=== PATIENT | female | born 1955 | race Two or more races ===

== ENCOUNTER 2025-08-22 13:32 | Emergency (ER) | payer OTHER, SELFPAY ==
[2025-08-22] VITALS (16 sets, daily range): BP systolic 118–144; BP diastolic 65–102; PULSE 55–81; TEMP 36.6; O2SAT 91–95; BMI 41.2
--- NOTE | 2025-08-22 13:38 | ECG_ITS ---
[facility] Test Date: 2025-08-22 Pat Name: LESA HERNANDEZ Department: Room: - Gender: Female Clinical Program Consultant: : [id number] Requested By: [id number] Order Number: [id number] Reading MD: STEVE ALVARADO M.D. Measurements Intervals [place] Rate: 63 P: -59105 CA: 187 QRS: 64 QRSD: 134 T: 41 QT: 440 QTc: 448 Interpretive Statements Sinus rhythm with occasional premature ventricular premature complexes 2450 Right bundle branch block 9150 abnormal ECG No previous ECG available for comparison Electronically Signed On 08-22-2025 16:47:07 EST by STEVE ALVARADO M.D.
--- NOTE | 2025-08-22 13:38 | XR_ITS ---
The [address] [address] Patient Name: LESA HERNANDEZ MRN: [id number] date: 1955 Sex: F Assigned Patient Location: ED.MAIN Current Patient Location: ED.MAIN Accession/Order Number: [id number] Exam Date: 08/22/2025 14:10 Report Date: 08/22/2025 14:36 At the request of: MYRNA OLIVARES DO Procedure: XR chest 1V XR chest 1V 08/22/2025 2:17 PM SIGNS AND SYMPTOMS: ^CP PROTOCOL: Frontal radiograph of the chest COMPARISON: None FINDINGS: The trachea is midline. The heart and mediastinal structures are within normal limits. The lung parenchyma is clear. The bony thorax is intact. Remote appearing fractures are noted in the lateral left fourth and fifth ribs. XR/XR chest 1V IMPRESSION: No acute cardiopulmonary pathology. Impression dictated by: Martinez Wise M.D. 08/22/2025 2:36 PM Dictation Location: [place] [address] Electronically authenticated by: [id number] Y Date: 08/22/2025 14:36
--- OUTSIDE RECORDS SUMMARY | 2025-08-22 13:47 | XMS_ITS | Patient Health Record ---
Author Organization [employer] es Address [address] [place] [address] Care Team Providers Care Maintenance Millwright Name Role Phone Marquez Gamez Primary Care Provider Allergies No Known Allergies Reason For Referral No Information Medications Medication SIG (Take, Route, Frequency, Duration) Notes Start Date End Date Status Metoprolol Succinate 50 MG Capsule ER 24 Hour Sprinkle 1 capsule Orally Once a day ActiveOmeprazole 40 MG Capsule Delayed Release1 capsule 30 minutes before morning meal Orally Once a dayActivePravastatin Tsvgpu533bsSjnnjqQXWlhagzba Fumarate 100 MG Tablet1 tablet at bedtime Oral; Duration: 30 daysActive Escitalopram Oxalate 20 MG TabletTAKE 1 TABLET BY MOUTH DAILY Oral; Duration: 90 daysActivehydrOXYzine Pamoate 25 MG Capsule 1 capsule at bedtime as needed Orally twice a day; Duration: 30 days As needed ActivetiZANidine HCl 2 MG TabletTAKE 1 TABLET BY MOUTH TWICE DAILY Oral; Duration: 90 DaysActiveALPRAZolam 0.5 MG Tablet1 tablet Orally three times a day (tid) as needed (prn); Duration: 30 days5ActiverOPINIRole HCl 1 MG Tablet1 tablet 1 to 3 hours before bedtime Orally Once a dayActive Semaglutide(0.25 or 0.5MG/DOS) 2 MG/3ML Solution Pen-injectoras directed SubcutaneousActiveGabapentin 600 MG Tablet1 tablet Orally three times a day; Duration: 30 daysActiveRexulti 3 MG Tablet1 tablet Orally Once a day07/30/2024 Active Social History Tobacco Use: Social History Observation Description Date Details (start date - stop date) Unknown Social History GeneralSocial InfoQuestionAnswerNotesDepression Screening (PHQ-9):Little interest or pleasure in doing thingsNearly every dayFeeling down, depressed, or hopelessNearly every dayTrouble falling or staying asleep, or sleeping too much Nearly every dayFeeling tired or having little energyNearly every dayPoor appetite or overeatingNearly every dayFeeling bad about yourself-or that you are a failure or have let yourself or your family downNearly every dayTrouble concentrating on things, such as reading the newspaper or watching television Nearly every dayMoving or speaking so slowly that other people could have noticed. Or the opposite being so fidgetyor restless that you have been moving around a lot more than usualNearly every dayThoughts that you would be better off , or of hurting yourself in some wayNearly every day(Consider Suicide Assessment Risk)Total Kliea20AysywvrrdnookLwlqpk DepressionSubstance abuse/mental health issues of patient/familyPatient -Illegal Drug UseTHC gummies Drug/Alcohol:Social InfoQuestionAnswerNotesAUDIT-C (Standard)Did you have a drink containing alcohol in the past year?Yes? How often did you have six or more drinks on one occasion in the past year?4 or more times a week (4 points)? How many drinks did you have on a typical day when you were drinking in the past year?5 or 6 drinks (2 points)? How often did you have a drink containing alcohol in the past year?Daily or almost daily (4 points)Onbxtf71RgqftkagclyuheTenhcqjo Tobacco Use:Social InfoQuestionAnswerNotesTobacco Control (Standard)Tobacco use: Uses tobacco in other formsSection Notes: pt vapes pt vapes pt vapes pt vapes pt vapes pt vapes pt vapes Problems Problem Type SNOMED Code ICD Code Onset Dates Problem Status W/U Status Risk Notes Problem Chronic fatigue syndrome (24314489) Chron ic fatigue (R53.82) ActiveconfirmedProblemModerate recurrent major depression (42525571)Moderate episode of recurrent major depressive disorder (F33.1)ActiveconfirmedProblem Panic disorder with agoraphobia (23574576)Panic disorder with agoraphobia (F40.01)ActiveconfirmedProblemGeneralized anxiety disorder (19168732)Generalized anxiety disorder (F41.1)Activeconfirmed Vital Signs Heart Rate 85 /min 02/24/2025 Oywoeehtfwv30.8 degrees Owpszhtuep22/12/9199Tldximyg61 %02/24/2025lood pressure fsrfuacjj13 mm Hg02/24/20256722Qqkeca53 in02/24/2025lood pressure koiaqsyv120 mm Hg 02/24/20259394Bhtmbe452.6 lbs02/24/2025BMI35.96 kg/m202/24/2025 Encounters Encounter Location Date Provider Diagnosis [facility] [address] [place] [address] 09/15/2024 [facility] Generalized anxiety disorder F41.1 [facility] [address] [place] [address] 09/28/2024 [facility] [place] [address]/[facility] [place] [address] 11/03/2024[facility] [place] [address]/[facility] SoviakGeneralized anxiety disorder F41.1[facility] [place] [address]/Ki SoviakModerate episode of recurrent major depressive disorder F33.1FSakakawea Medical CenterEngfnky[address] [place] [address]/Kip SoviakChronic fatigue R53.82[facility] [address] [facility] [place] [address]/Kip SoviakGeneralized anxiety disorder F41.1F [address]xy[address] [facility] [place] [address]/09/2024Kip SoviakGeneralized anxiety disorder F41.1FSakakawea Medical CenterJdqmcnj[address] [place] [address]/Kip SoviakModerate episode of recurrent major depressive disorder F33.1FSakakawea Medical CenterAfwnxbc[address] [place] [address]/09/2025Kip SoviakModerate episode of recurrent major depressive disorder F33.1F [address] [place] [address]/Kip SoviakModerate episode of recurrent major depressive disorder F33.1F [address] [place] [address]/Kip SoviakModerate episode of recurrent major depressive disorder F33.1 Assessments Encounter Date Diagnosis (ICD Code) Assessment Notes Treatment Notes Treatment Clinical Notes Section Notes 11/27/2024 Moderate episode of recurrent major depressive disorder (ICD-10 - F33.1) Recommended treatment is: _ FDA approved medication for this age group include Selective Serotonin Reuptake Inhibitors (SSRI) and Selective Norepinephrine Reuptake Inhibitors (SNRI). . Selective serotonin reuptake inhibitors? can cause nausea, headache, upset stomach, diarrhea, constipation, anxiety, irritability, and sexual dysfunction. . Please monitor for worsening of symptoms, especially suicidal ideations or morbid thoughts, and call office and or go to the emergency department immediately. Pt does not endorse exhibiting symptoms aligning with heather. . The patient verbalizes understanding with all questions answered thoroughly and is in agreement with treatment plan. . Continue current treatment plan Patient/Guardian will call sooner if symptoms worsen. Patient understands to go to ER if needed if symptoms become severe. Crisis Intervention plan was discussed and agreed upon. Patient/Guardian will call 911 in case of emergency. Emergency contact information was provided to the patient/guardian. Informed consent obtained: YES, we discussed the diagnosis/diagnoses, the treatment options, treatment(s) recommendations vs. no treatment. We discussed risks and benefits of treatment options, treatment recommendations vs. no treatment. Currently at low risk for self harm. Denies ongoing feelings of hopelessness. Denies ongoing suicidal ideation, intent or plan in session. Pharmacological management: Alternative medication plans were discussed with the patient and or guardian. All relevant and serious adverse effects were discussed. Standard precautions and potential benefits were discussed. Patient/Guardian consented to begin medication/ continue treatment plan. questions answered satisfactorily, agreeable to treatment plan Cont current treatment Tolerating meds well, compliant Call for problems Follow up 3 months Patient/Guardian will call sooner if symptoms worsen. Patient understands to go to the ER if neededif symptoms become severe. Crisis intervention plan was discussed and agreed upon. Patient/Guardian will call 911 in case of emergency. Emergency contact information was provided to the patient/guardian. 03/10/2025hronic fatigue (ICD-10 - R53.82)09/24/2024Generalized anxiety disorder (ICD-10 - F41.1) Recommended treatment is: _ FDA approved medication for this age group include Selective Serotonin Reuptake Inhibitors (SSRI) and Selective Norepinephrine Reuptake Inhibitors (SNRI). . Selective serotonin reuptake inhibitors? can cause nausea, headache, upset stomach, diarrhea, constipation, anxiety, irritability, and sexual dysfunction. . Please monitor for worsening of symptoms, especially suicidal ideations or morbid thoughts, and call office and or go to the emergency department immediately. Pt does not endorse exhibiting symptoms aligning with heather. . The patient verbalizes understanding with all questions answered thoroughly and is in agreement with treatment plan. . Continue current treatment plan Patient/Guardian will call sooner if symptoms worsen. Patient understands to go to ER if needed if symptoms become severe. Crisis Intervention plan was discussed and agreed upon. Patient/Guardian will call 911 in case of emergency. Emergency contact information was provided to the patient/guardian. 08/27/2024Generalized anxiety disorder (ICD-10 - F41.1)Patient will continue current treatment plan. Patient will also add Topamax for help with appetite as she needs to have knee surgery and lose pounds and also for some alcohol avoidance. Patient to follow up in 30 days to discuss and evaluate these medications.02/24/2025Moderate episode of recurrent major depressive disorder (ICD-10 - F33.1) Informed consent obtained: YES, we discussed the diagnosis/diagnoses, the treatment options, treatment(s) recommendations vs. no treatment. We discussed risks and benefits of treatment options, treatment recommendations vs. no treatment. Currently at low risk for self harm. Denies ongoing feelings of hopelessness. Denies ongoing suicidal ideation, intent or plan in session. Pharmacological management: Alternative medication plans were discussed with the patient and or guardian. All relevant and serious adverse effects were discussed. Standard precautions and potential benefits were discussed. Patient/Guardian consented to begin medication/ continue treatment plan. questions answered satisfactorily, agreeable to treatment plan Cont current treatment Tolerating meds well, compliant Call for problems Follow up 3 months Patient/Guardian will call sooner if symptoms worsen. Patient understands to go to the ER if neededif symptoms become severe. Crisis intervention plan was discussed and agreed upon. Patient/Guardian will call 911 in case of emergency. Emergency contact information was provided to the patient/guardian. 11/03/2024Generalized anxiety disorder (ICD-10 - F41.1)09/15/2024Generalized anxiety disorder (ICD-10 - F41.1)12/23/2024Moderate episode of recurrent major depressive disorder (ICD-10 - F33.1) Informed consent obtained: YES, we discussed the diagnosis/diagnoses, the treatment options, treatment(s) recommendations vs. no treatment. We discussed risks and benefits of treatment options, treatment recommendations vs. no treatment. Currently at low risk for self harm. Denies ongoing feelings of hopelessness. Denies ongoing suicidal ideation, intent or plan in session. Pharmacological management: Alternative medication plans were discussed with the patient and or guardian. All relevant and serious adverse effects were discussed. Standard precautions and potential benefits were discussed. Patient/Guardian consented to begin medication/ continue treatment plan. questions answered satisfactorily, agreeable to treatment plan Cont current treatment Tolerating meds well, compliant Call for problems Follow up 3 months Patient/Guardian will call sooner if symptoms worsen. Patient understands to go to the ER if neededif symptoms become severe. Crisis intervention plan was discussed and agreed upon. Patient/Guardian will call 911 in case of emergency. Emergency contact information was provided to the patient/guardian. 01/27/2025Moderate episode of recurrent major depressive disorder (ICD-10 - F33.1) Discontinue Topamax, continue modafinil for another month follow up in 30 days to discuss and evaluate. Informed consent obtained: YES, we discussed the diagnosis/diagnoses, the treatment options, treatment(s) recommendations vs. no treatment. We discussed risks and benefits of treatment options, treatment recommendations vs. no treatment. Currently at low risk for self harm. Denies ongoing feelings of hopelessness. Denies ongoing suicidal ideation, intent or plan in session. Pharmacological management: Alternative medication plans were discussed with the patient and or guardian. All relevant and serious adverse effects were discussed. Standard precautions and potential benefits were discussed. Patient/Guardian consented to begin medication/ continue treatment plan. questions answered satisfactorily, agreeable to treatment plan Cont current treatment Tolerating meds well, compliant Call for problems Follow up 3 months Patient/Guardian will call sooner if symptoms worsen. Patient understands to go to the ER if neededif symptoms become severe. Crisis intervention plan was discussed and agreed upon. Patient/Guardian will call 911 in case of emergency. Emergency contact information was provided to the patient/guardian. 02/02/2025Moderate episode of recurrent major depressive disorder (ICD-10 - F33.1) Plan Of Treatment No Information Insurance Providers Payer Name Payer Address Payer Phone Subscriber Number Group Number Insured Name Patient Relationship to Insured Coverage Start Date Coverage End Date [employer] Non-Par [address] [place] [id number] Doreen HERNANDEZ - patient is the [id number] 2023[facility] (Devoted) Non-Par [address] [place] [id number] JULIESelf - patient is the [id number] 2023 Medical (General) History Medical History History ICD Code anxiety
[2025-08-22] MEDS: LORAZEPAM 2 MG/ML VIAL 1 MG IV (13:53)
[2025-08-22 14:19] LABS: Hematocrit 38.1 % (36.0-48.0); Hemoglobin 12.3 g/dL (12.0-16.0); Immature Granulocytes Abs Auto 0.07 10^3/uL (0.00-0.03); Immature Granulocytes Pct Auto 0.8 % (0.0-0.5); Lymphocytes Absolute Auto 2.3 10^3/uL (1.2-3.8); Mean Corpuscular HGB Conc 32.3 g/dL (29.9-35.2); Mean Corpuscular Hemoglobin 31.6 pg (26.7-34.0); Mean Corpuscular Volume 97.9 fL (81.0-99.0); Platelet Count 264 10^3/uL (150-450); Red Blood Count 3.89 10^6/uL (4.20-5.40); White Blood Count 9.0 10^3/uL (4.0-11.0)
[2025-08-22] MEDS: TRAMADOL HCL 50 MG TABLET PO (14:31)
[2025-08-22 14:33] LABS: Alanine Aminotransferase 26 U/L (14-59); Albumin Globulin Ratio 0.9; Albumin Level 3.5 g/dL (3.4-5.0); Alkaline Phosphatase 94 U/L (46-116); Anion Gap 16.5; Aspartate Amino Transferase 14 U/L (15-37); Blood Urea Nitrogen 34.0 mg/dL (7.0-18.0); Calcium 9.3 mg/dL (8.5-10.1); Carbon Dioxide 30.7 mmol/L (21.0-32.0); Chloride 101 mmol/L (98-107); Estimated GFR (African America 49 (>=60 mL/min/1.73m^2); Estimated GFR (Non-African Ame 40 (>=60 mL/min/1.73m^2); Globulin 4.0 g/dL; Glucose 128 mg/dL (74-106); Potassium 4.2 mmol/L (3.5-5.1); Sodium 144 mmol/L (136-145); Total Protein 7.5 g/dL (6.4-8.2)
--- NOTE | 2025-08-23 07:22 | ED.CHESTPAI1 ---
HPI - Chest Pain General Chief Complaint: Chest Pain Stated Complaint: BACK AN CHEST PAIN Time Seen by Provider: 08/22/25 13:35 Source: patient Mode of arrival: ambulance History of Present Illness HPI narrative: Patient is a 70-year-old female presenting to the emergency department from the [facility] for evaluation of chest pain. Patient states that chest pain is located the left side of her chest. States the pain has been ongoing for the last few weeks, and is only relieved with her pain medications. However, at the [facility] which has been for the last few days, they have not been giving her pain medications. She is quite frustrated about this, and believes this is the cause of her pain. She denies any associated shortness of breath. No nausea or vomiting or sweating. She denies history of OR or prior cardiac disease. She denies history of DVT/PE, leg swelling, or hemoptysis. Related Data Home Medications ?Medication ?Instructions ?Recorded ?Confirmed acetaminophen 500 mg tablet 1,000 mg PO TID PRN pain 08/22/25 08/22/25 (Acetaminophen Extra Strength) albuterol sulfate 2.5 mg/3 mL 2.5 mg inhalation Q6H 08/22/25 08/22/25 (0.083 %) solution for nebulization alprazolam 0.5 mg tablet 0.5 mg PO TID anxiety 08/22/25 08/22/25 atorvastatin 10 mg tablet 10 mg PO DAILY 08/22/25 08/22/25 brexpiprazole 3 mg tablet (Rexulti) 3 mg PO DAILY 08/22/25 08/22/25 diclofenac sodium 1 % topical gel 2 g topical QID 08/22/25 08/22/25 (Arthritis Pain (diclofenac)) escitalopram oxalate 20 mg tablet 20 mg PO DAILY 08/22/25 08/22/25 fluticasone propionate 50 2 spray intranasal DAILY 08/22/25 08/22/25 mcg/actuation nasal spray,suspension furosemide 40 mg tablet 40 mg PO DAILY 08/22/25 08/22/25 gabapentin 300 mg capsule 300 mg PO Q8H 08/22/25 08/22/25 metoprolol tartrate 50 mg tablet 50 mg PO Q12H 08/22/25 08/22/25 modafinil 200 mg tablet 200 mg PO DAILY 08/22/25 08/22/25 omeprazole 20 mg capsule,delayed 40 mg PO DAILY 08/22/25 08/22/25 release polyethylene glycol 3350 17 17 g PO DAILY 08/22/25 08/22/25 gram/dose oral powder (ClearLax) quetiapine 100 mg tablet 100 mg PO HS 08/22/25 08/22/25 ropinirole 1 mg tablet 1 mg PO HS 08/22/25 08/22/25 spironolactone 25 mg tablet 12.5 mg PO DAILY 08/22/25 08/22/25 tizanidine 2 mg tablet 2 mg PO Q12H 08/22/25 08/22/25 tramadol 50 mg tablet 50 mg PO Q12H PRN pain 08/22/25 08/22/25 Allergies Allergy/AdvReac Type Severity Reaction Status Date / Time No Known Drug Allergies Allergy Verified 08/22/25 13:36 Review of Systems ROS Status of ROS 10 or more systems reviewed and unremarkable except as noted in history and below PFSH PFSH Social History Little interest or pleasure in doing things: not at all Feeling down, depressed, or hopeless: not at all Exam Narrative Exam Narrative: CONSTITUTIONAL: She appears anxious but in no acute distress, nontoxic, answering questions and following commands appropriately SKIN: Was warm and dry, no rashes. EYES: Sclerae white. EARS, NOSE, THROAT: Moist oral mucosa. No JVD. RESPIRATORY: Clear to auscultation bilaterally, no wheezes, crackles, or stridor, no use of accessory muscles CARDIOVASCULAR: Normal rate and regular rhythm. There is no S3, S4, murmur, rub. GASTROINTESTINAL: Abdomen is soft, nontender, nondistended. MUSCULOSKELETAL: No peripheral edema. NEUROLOGIC: Patient is awake and alert. Facies were symmetrical. Constitutional Vital Signs, click to edit/add: Last Vital Signs Temp 97.9 F 08/22/25 13:36 Pulse 81 08/22/25 15:20 Resp 14 08/22/25 15:13 BP 136/76 08/22/25 15:13 Pulse Ox 93 L 08/22/25 15:20 O2 Del Method Room Air 08/22/25 13:36 Course Vital Signs Vital signs: Vital Signs Temperature 97.9 F 08/22/25 13:36 Pulse Rate 59 L 08/22/25 13:36 Respiratory Rate 20 08/22/25 13:36 Blood Pressure 144/65 H 08/22/25 13:36 Pulse Oximetry 95 08/22/25 13:36 Oxygen Delivery Method Room Air 08/22/25 13:36 Temperature 97.9 F 08/22/25 13:36 Pulse Rate 81 08/22/25 15:20 Respiratory Rate 14 08/22/25 15:13 Blood Pressure 136/76 08/22/25 15:13 Pulse Oximetry 93 L 08/22/25 15:20 Oxygen Delivery Method Room Air 08/22/25 13:36 MDM - Chest Pain MDM Narrative Medical decision making narrative: Patient is a 70-year-old female presenting to the emergency department with a senior living for evaluation of chest pain that has been intermittent over the last few weeks. Vital signs arrival are within normal limits. She is afebrile and hemodynamically stable. She has unremarkable physical examination. Differential diagnosis includes ACS, arrhythmia, pneumothorax, pneumonia, symptomatic anemia, or other electrolyte/metabolic derangement. I did consider PE, however she has a Wells Score for PE of 0, making her low risk. IV is established and laboratory studies are obtained. Patient states she has been on Xanax for the last 3 years, they have not been giving her medication at the senior living. She does appear anxious, therefore she was treated with IV lorazepam. 12 Lead EKG: Normal sinus rhythm at a rate of 63. RSR' configurations with prolonged QRS interval in the right sided leads, consistent with RBBB. Occasional PVC. No ST segment elevations. No prior EKG for comparison. Final impression: normal sinus rhythm with RBBB, no evidence of acute myocardial ischemia. Laboratory studies were unremarkable. No significant electrolyte or metabolic derangement. No evidence of acute kidney injury. No anemia, leukocytosis, or thrombocytopenia. No transaminitis or hyperbilirubinemia. Troponin nonelevated. Chest x-ray independently reviewed/interpreted by myself demonstrated no acute cardiopulmonary process. On reevaluation, patient states she feels significantly improved after IV Ativan. She feels comfortable being discharged back to the [facility]. I do believe the patient is stable for discharge. They were instructed to follow up with her PCP for further care. Return precautions were given including any new or worsening symptoms. Patient understands and agrees to the plan. FINAL IMPRESSION: #Acute chest pain #Acute anxiety DISPOSITION: Discharged to the [facility] CONDITION: Good Lab Data Attestation: I reviewed the patient's lab results. Labs: Lab Results 08/22/25 Range/Units 13:50 WBC 9.0 (4.0-11.0) 10^3/uL RBC 3.89 L (4.20-5.40) 10^6/uL Hgb 12.3 (12.0-16.0) g/dL Hct 38.1 (36.0-48.0) % MCV 97.9 (81.0-99.0) fL MCH 31.6 (26.7-34.0) pg MCHC 32.3 (29.9-35.2) g/dL RDW 13.1 (11.0-15.0) % Plt Count 264 (150-450) 10^3/uL MPV 9.7 (9.5-13.5) fL Neut % (Auto) 60.9 (43.0-75.0) % Lymph % (Auto) 25.1 (20.5-60.0) % Winston % (Auto) 7.7 (1.7-12.0) % Eos % (Auto) 4.9 (0.9-7.0) % Baso % (Auto) 0.6 (0.2-2.0) % Neut # (Auto) 5.5 (1.4-6.5) 10^3/uL Lymph # (Auto) 2.3 (1.2-3.8) 10^3/uL Winston # (Auto) 0.7 (0.3-0.8) 10^3/uL Eos # (Auto) 0.4 (0.0-0.7) 10^3/uL Baso # (Auto) 0.1 (0.0-0.1) 10^3/uL Abs Immat Gran (auto) 0.07 H (0.00-0.03) 10^3/uL Imm/Tot Granulo (auto) 0.8 H (0.0-0.5) % Sodium 144 (136-145) mmol/L Potassium 4.2 (3.5-5.1) mmol/L Chloride 101 (98-107) mmol/L Carbon Dioxide 30.7 (21.0-32.0) mmol/L Anion Gap 16.5 BUN 34.0 H (7.0-18.0) mg/dL Creatinine 1.30 H (0.55-1.02) mg/dL Est GFR ( Amer) 49 L (>=60 mL/min/1.73m^2) Est GFR (Non-Af Amer) 40 L (>=60 mL/min/1.73m^2) BUN/Creatinine Ratio 26.2 Glucose 128 H (74-106) mg/dL Calcium 9.3 (8.5-10.1) mg/dL Total Bilirubin 0.3 (0.2-1.0) mg/dL AST 14 L (15-37) U/L ALT 26 (14-59) U/L Alkaline Phosphatase 94 (46-116) U/L Troponin I High Sens 7.5 (4.0-51.3) pg/mL Total Protein 7.5 (6.4-8.2) g/dL Albumin 3.5 (3.4-5.0) g/dL Globulin 4.0 g/dL Albumin/Globulin Ratio 0.9 Imaging Data Chest x-ray: Attestation: I personally reviewed and interpreted this imaging study as follows: Radiologist's impression: ITS Impressions Chest X-Ray 08/22/25 13:38 IMPRESSION: No acute cardiopulmonary pathology. Impression dictated by: Martinez Wise M.D. 08/22/2025 2:36 PM Dictation Location: [place] [id number] Electronically authenticated by: [id number] Y Date: 08/22/2025 14:36 ECG Data Attestation: I personally reviewed and interpreted this ECG as follows: Discharge Plan Discharge Chief Complaint: Chest Pain Clinical Impression: Atypical chest pain Patient Disposition: Home, Self-Care Time of Disposition Decision: 15:05 Condition: Good Mode of Transportation: Private Vehicle Prescriptions / Home Meds: No Action alprazolam 0.5 mg tablet 0.5 mg PO TID escitalopram oxalate 20 mg tablet 20 mg PO DAILY gabapentin 300 mg capsule 300 mg PO Q8H diclofenac sodium [Arthritis Pain (diclofenac)] 1 % gel 2 g topical QID Rx Instructions: apply to single elbow, wrist or hand; for hand includes palm/fingers/back of hand furosemide 40 mg tablet 40 mg PO DAILY metoprolol tartrate 50 mg tablet 50 mg PO Q12H omeprazole 20 mg capsule,delayed release(DR/EC) 40 mg PO DAILY quetiapine 100 mg tablet 100 mg PO HS Rexulti 3 mg tablet 3 mg PO DAILY ropinirole 1 mg tablet 1 mg PO HS spironolactone 25 mg tablet 12.5 mg PO DAILY tizanidine 2 mg tablet 2 mg PO Q12H atorvastatin 10 mg tablet 10 mg PO DAILY fluticasone propionate 50 mcg/actuation spray,suspension 2 spray INTRANASAL DAILY acetaminophen [Acetaminophen Extra Strength] 500 mg tablet 1,000 mg PO TID PRN (Reason: pain) modafinil 200 mg tablet 200 mg PO DAILY tramadol 50 mg tablet 50 mg PO Q12H PRN (Reason: pain) polyethylene glycol 3350 [ClearLax] 17 gram/dose powder 17 g PO DAILY albuterol sulfate 2.5 mg /3 mL (0.083 %) solution for nebulization 2.5 mg inhalation Q6H Print Language: Maltese Instructions: Chest Wall Pain (ED) Referrals: COURTNEY ANDERSON DO [Primary Care Provider, Family Practice] - 1 week Discharge Date/Time: 08/22/25 17:11
== END 2025-08-22 17:11 | disposition home or self-care (01) ==
PROVIDERS: Emergency Provider Student in an Organized Health Care Education/Training Program; PCP Family Medicine
DX: R07.89 Other chest pain (principal)
CPT/HCPCS: 36415; 71045; 80053; 84484; 85025; 93005; 96374; 99285; J2060